=== PATIENT | female | born 1995 | race Caucasian/White ===

== ENCOUNTER 2016-10-15 12:08 | Inpatient (IN) | payer MEDICAID ==
[~2016-10-15] VITALS: Ht 160 cm; Wt 78.9 kg
[2016-10-15] MEDS: LACTATED RINGERS 1,000 ML IV SCH ×2 (06:36→22:34)
[2016-10-15] MEDS ORDERED: PREN-380 PO (12:53)
[2016-10-15] MEDS ORDERED: METH10TA PO (12:55)
[2016-10-15] MEDS ORDERED: CARBOPROST 250 MCG/ML AMP IM PRN (13:00)
[2016-10-15] MEDS ORDERED: METHYLERGONOVINE 0.2 MG/ML AMP IM PRN (13:00)
[2016-10-15] MEDS ORDERED: NALBUPHINE HYDROCHLORIDE 10 MG/ML VIAL IVP PRN (13:00)
[2016-10-15] MEDS ORDERED: OXYTOCIN 10 UNITS/ML VIAL IM SCH (13:00)
[2016-10-15] MEDS ORDERED: PROMETHAZINE 25 MG/ML VIAL IVP PRN (13:00)
[2016-10-15] MEDS ORDERED: OXYTOCIN 20 UNITS/LR PREMIX 1,000 ML IV SCH (13:30)
[2016-10-15 13:31] LABS: BASOPHILS # (AUTO) 0.1 K/uL (0.00-0.22); BASOPHILS % (AUTO) 0.6 % (0.0-2.0); EOSINOPHILS # (AUTO) 0.3 K/uL (0-0.4); EOSINOPHILS % (AUTO) 2.3 % (0.0-4.0); HEMATOCRIT 40.3 % (36-48); HEMOGLOBIN 13.4 g/dL (12.0-16.0); LYMPHOCYTES # (AUTO) 1.2 K/uL (2.5-16.5); LYMPHOCYTES % (AUTO) 10.7 % (20.5-51.1); MEAN CORPUSCULAR HEMOGLOBIN 28 pg (27-31); MEAN CORPUSCULAR HGB CONC 33 g/dL (33-37); MEAN CORPUSCULAR VOLUME 85 fL (80-94); MONOCYTES # (AUTO) 0.7 K/uL (0.8-1.0); MONOCYTES % (AUTO) 6.1 % (1.7-9.3); NEUTROPHILS # (AUTO) 8.9 K/uL (1.8-7.7); NEUTROPHILS % (AUTO) 80.3 % (42.2-75.2); PLATELET COUNT (AUTO) 250 K/uL (140-450); RED BLOOD CELL COUNT(AUTO) 4.73 MIL/uL (4.20-5.40); RED CELL DISTRIBUTION WIDTH 12.6 % (11.6-13.7); WHITE BLOOD COUNT (AUTO) 11.2 K/uL (4.8-10.8)
[2016-10-15 13:34] LABS: APPEARANCE,URINE SL CLOUDY (CLEAR); BILIRUBIN,URINE NEGATIVE (NEGATIVE); BLOOD, URINE NEGATIVE (NEGATIVE); LEUKOCYTE ESTERASE ,URINE 2+ (NEGATIVE); NITRITE, URINE NEGATIVE (NEGATIVE); PH,URINE 6.5 (5.0-9.0); PROTEIN,URINE NEGATIVE (NEGATIVE); UGLUCOSE NEGATIVE (NEGATIVE); UROBILINOGEN,URINE 0.2 EU/dL (0.2 - 1)
[2016-10-15 13:40] LABS: COLOR,URINE YELLOW (YELLOW)
[2016-10-15 13:53] LABS: ANION GAP 16.3 (8-16); CALCIUM 8.6 mg/dL (8.5-10.1); CARBON DIOXIDE 21.7 mmol/L (21-32); CREATININE 0.5 mg/dL (0.6-1.3)
[2016-10-15 13:57] LABS: BACTERIA,URINE 1+ /HPF (None Seen); RBC,URINE 0-2 /HPF (0-5); SQUAMOUS EPITHELIAL CELL,UR 80-100 /LPF (0-3 (FEW))
[2016-10-15 13:58] LABS: MUCUS,URINE 2+ /LPF (None Seen)
[2016-10-15 13:59] LABS: ALBUMIN 2.6 g/dL (3.4-5.0); TOTAL BILIRUBIN 0.3 mg/dL (0.0-1.0); TOTAL PROTEIN, SERUM 6.3 g/dL (6.4-8.2)
[2016-10-15] MEDS ORDERED: MISOPROSTOL 25 MCG TAB VG PRN (15:10)
[2016-10-15] MEDS ORDERED: MISOPROSTOL 25 MCG TAB ONE ×2 (15:16→20:32)
[2016-10-15 15:17] LABS: HIV RAPID SCREEN NON-REACTIVE (NON REACTIV)
[2016-10-16] MEDS ORDERED: OXYTOCIN 20 UNITS/LR PREMIX 1,000 ML IV ONE ×2 (00:22→20:30)
[2016-10-16] MEDS ORDERED: NALBUPHINE HYDROCHLORIDE 10 MG/ML VIAL ONE (05:38)
[2016-10-16] MEDS ORDERED: PROMETHAZINE 25 MG/ML VIAL ONE (05:39)
[2016-10-16 06:30] LABS: RAPID PLASMA REAGIN NON-REACTIVE (Non Reactiv)
--- NOTE | 2016-10-16 08:05 | NUR ---
PATIENT HAS BEEN SCREENED AND CATEGORIZED LOW RISK. PATIENT WILL BE SEEN WITHIN 7 DAYS OF ADMISSION. 10/22/[address]
[2016-10-16] MEDS ORDERED: AMPICILLIN 2,000 MG in NACL 0.9% 100 ML IV ONE (09:00)
[2016-10-16] MEDS ORDERED: AMPICILLIN 2,000 MG VIAL ONE (09:12)
[2016-10-16] MEDS ORDERED: BUPIVACAINE 0.125%/NS PREMIX 250 ML ONE (11:00)
[2016-10-16] MEDS ORDERED: AMPICILLIN 1,000 MG VIAL ONE ×3 (13:27→21:10)
[2016-10-16] MEDS: AMPICILLIN 1,000 MG in NACL 0.9% 50 ML IV SCH ×3 (13:40→21:12)
[2016-10-16] MEDS ORDERED: OXYTOCIN 10 UNITS/ML VIAL ONE (20:29)
[2016-10-16] MEDS ORDERED: MEASLES, MUMPS, AND RUBELLA 1 VIAL SQVAC PRN (21:45)
[2016-10-16] MEDS ORDERED: oxyCODONE/APAP 5/325 MG 1 TAB TAB PO PRN (21:45)
[2016-10-16] MEDS ORDERED: OXYTOCIN 10 UNITS/ML VIAL IM PRN (21:45)
[2016-10-16] MEDS ORDERED: BENZOCAINE/MENTHOL 20%-0.5% 60 GM CAN TP PRN (21:45)
[2016-10-16] MEDS ORDERED: TEMAZEPAM 15 MG CAP PO PRN (21:45)
[2016-10-16] MEDS ORDERED: METHYLERGONOVINE 0.2 MG/ML AMP IM PRN (21:45)
[2016-10-16] MEDS ORDERED: WITCH HAZEL 40 PAD PACKAGE TP PRN (21:45)
[2016-10-16] MEDS ORDERED: OXYTOCIN 20 UNITS/LR PREMIX 1,000 ML IV SCH (22:45)
[2016-10-17] MEDS: IBUPROFEN 800 MG TAB PO PRN ×2 (01:22→08:08)
[2016-10-17 06:54] LABS: HEMATOCRIT 35.3 % (36-48); HEMOGLOBIN 11.6 g/dL (12.0-16.0)
[2016-10-17] MEDS ORDERED: METHIMAZOLE 5 MG TAB PO SCH (12:45)
[2016-10-17] MEDS: HYDROcodone/APAP 5/325 MG 1 TAB TAB PO PRN (13:46)
[2016-10-17] MEDS ORDERED: DOCUSATE SOD/SENNA 50/8.6 MG 1 TAB PO SCH (21:00)
[2016-10-17] MEDS ORDERED: OXYTOCIN 20 UNITS/LR PREMIX 1,000 ML IV SCH (22:45)
[2016-10-18] MEDS: IBUPROFEN 800 MG TAB PO PRN ×2 (08:14→19:11)
[2016-10-18] MEDS ORDERED: METHIMAZOLE 5 MG TAB PO SCH (09:00)
[2016-10-18] MEDS ORDERED: IBUP-1842 PO (10:49)
[2016-10-18] MEDS: HYDROcodone/APAP 5/325 MG 1 TAB TAB PO PRN (20:17)
== END 2016-10-18 21:45 | disposition home or self-care (01) | DRG 560 ==
LOC: MLD 12:08 → MFCC 10-17 01:10
PROVIDERS: ADMIT Obstetrics & Gynecology; ATTEND Obstetrics & Gynecology
PROC: 3E0P7GC Introduction of Other Therapeutic Substance into Female Reproductive, Via Natural or Artificial Opening (ICD-10-PCS; 2016-10-15)
PROC: 10E0XZZ Delivery of Products of Conception, External Approach (ICD-10-PCS; principal; 2016-10-16)
PROC: 0W8NXZZ Division of Female Perineum, External Approach (ICD-10-PCS; 2016-10-16)
PROC: 00HU33Z Insertion of Infusion Device into Spinal Canal, Percutaneous Approach (ICD-10-PCS; 2016-10-16)
PROC: 3E0R3CZ (ICD-10-PCS; 2016-10-16)
DX: O63.9 Long labor, unspecified (principal); O69.1XX0 Labor and delivery complicated by cord around neck, with compression, not applicable or unspecified; Z3A.39 39 weeks gestation of pregnancy; Z37.0 Single live birth; Z28.21 Immunization not carried out because of patient refusal
CPT/HCPCS: 36415; 51702; 59200; 59409; 76815; 80053; 81001; 85018; 85025; 86592; 86886; 86900; 86901; 87086; J0290; J2300; J2550; J2590; J3490; J7120; Q0092